=== PATIENT | female | born 1990 | race Hispanic/Latino ===

== ENCOUNTER 2021-08-08 13:53 | Emergency (ER) | payer BC, OTHER, SELFPAY ==
--- OUTSIDE RECORDS SUMMARY | 2021-08-08 13:56 | XMS REPORT | Continuity of Care Document ---
:[address] [facility] t Address [address] [place] [address] Care Team Providers Name Role Phone Unavailable Unavailable Unavailable Problems Condition Condition Condition Status Onset Resolution Last Treating Co mments Source Name Details Category Date Date Treatment Clinician Date Allergic Allergic Problem [facility], [facility] - unspecifie unspecifie Me moria d d l seasonalit seasonalit Ou tpati y, y, ent unspecifie unspecifie Cl inics d trigger d trigger Diarrhea Diarrhea Diagnosis Active [facility] - presumed presumed Memori a infectious infectious l [facility] Gastroente Gastroente Diagnosis Active [facility] - [facility] l [facility] Allergies, Adverse Reactions, Alerts This patient has no known allergies or adverse reactions. Medications Ordered Filled Start Stop Current Ordering Indication Dosage Frequency Signature Comments Components Source Medication Medication Date Date Medication? Clinician (SIG) Name Name Sulfamethox Sulfamethox 2019- No Jewell [address] [facility] azole-Trime azole-Trime 04-29 [facility] - thoprim thoprim 00:00: 00:00 Memori a 00 :00 l [facility] Procedures This patient has no known procedures. Encounters Start End Encounter Admission Attending Care Care Encounter Source Date/Time Date/Time Type Type Clinicians Facility Department ID 2019-04-29 2019-04-29 [facility] [id number] [facility] [address] 13:20:00 13:20:00 [facility] Results This patient has no known results.
[2021-08-08] MEDS ORDERED: LIDOCAINE 1% W/EPI 1:100,000 MDV 50 ML VIAL ONE (15:56)
--- NOTE | 2021-08-08 16:32 | EDPHYS ---
Physician Documentation [facility] Name: Dayna Garzon Age: 31 yrs Sex: Female : 1990 Arrival Date: 08/08/2021 Time: 13:54 Bed 9 Private MD: ED Physician Phillip Hernandez HPI: 08/08 15:45 This 31 yrs old Female presents to ER via Ambulatory with complaints of Wrist cp Injury, Laceration. 15:45 The patient or guardian complains of a laceration, clean. cp 15:45 The complaints affect the volar side distal left forearm. Context: The problem was cp sustained at work, accidental, patient reports she was using pocket knife. Onset: The symptoms/episode began/occurred just prior to arrival. Treatment prior to arrival includes: pressure dressing to area. Associated signs and symptoms: Pertinent negatives: decreased range of motion, numbness, tingling. 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 - Social history:: Smoking status: Patient denies any tobacco usage or history of. Patient uses alcohol, on a daily basis. Patient/guardian denies using street drugs. ROS: 15:50 Constitutional: Negative for body aches, chills, fever. cp 15:50 MS/extremity: Negative for decreased range of motion, deformity. 15:50 Skin: Positive for laceration(s), of the volar side distal left forearm. 15:50 Neuro: Negative for numbness, tingling, weakness. 15:50 All other systems are negative. Exam: 15:55 Constitutional: The patient appears in no acute distress, alert, awake, comfortable, cp well developed, well nourished. 15:55 Head/Face: Normocephalic, atraumatic. cp 15:55 Cardiovascular: Rate: normal, Pulses: Pulses are 2+ in left radial artery. cp 15:55 Respiratory: the patient does not display signs of respiratory distress, Respirations: normal, no use of accessory muscles, no retractions. 15:55 Musculoskeletal/extremity: Extremities: noted in the left hand: There is no evidence of decreased ROM, no signs of tendon injury, the left forearm and left hand Sensation intact. 15:55 Skin: injury, laceration(s), the wound is approximately 2.5 cm(s), of the volar side distal left forearm, that can be described as clean, no foreign body, linear, with mild bleeding. Vital Signs: 14:38 BP 128 / 82; Pulse 82; Resp 18; Temp 97.9(TE); Pulse Ox 99% on R/A; Weight 72.57 kg; ld1 Height 5 ft. 1 in. (154.94 cm); Pain 0/10; 14:38 Body Mass Index 30.23 (72.57 kg, 154.94 cm) ld1 Laceration: 16:27 Wound Repair of 2.5cm ( 1.0in ) subcutaneous laceration to volar side distal left cp forearm. Linear shaped.. Distal neuro/vascular/tendon intact. Anesthesia: Wound infiltrated with 3 mls of 1% lidocaine w/ Epi. Wound prep: Moderate cleansing by me, Wound irrigation. Skin closed with 3 4-0 Prolene using simple sutures and sterile technique. Dressed with Bacitracin, 4x4's. Patient tolerated well. MDM: 15:34 Patient medically screened. [facility] 16:30 Data reviewed: vital signs, nurses notes. cp 16:30 Differential diagnosis: open fracture, simple laceration, tendon injury. Counseling: I cp had a detailed discussion with the patient and/or guardian regarding: the historical points, exam findings, and any diagnostic results supporting the discharge/admit diagnosis, to return to the emergency department if symptoms worsen or persist or if there are any questions or concerns that arise at home. Response to treatment: the patient's symptoms have markedly improved after treatment, and as a result, I will discharge patient. 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 Exp: ss 01/10/2023. Lot #: [id number]. } Route: IM; Site: right gluteus; Disposition: 16:45 Chart complete. cp 08/09 09:19 Co-signature as Attending Physician, Phillip Hernandez MD I agree with the assessment and [facility] plan of care. Disposition Summary: 08/08/21 16:31 Discharge Ordered Location: Home cp Problem: new cp Symptoms: have improved cp Condition: Stable cp Diagnosis - Laceration without foreign body of left forearm cp Followup: cp - With: Private Physician - When: 10 - 14 days - Reason: Staple/Suture removal Discharge Instructions: - Discharge Summary Sheet cp - Laceration Care, Adult cp Forms: - Medication Reconciliation Form cp - Thank You Letter cp - Antibiotic Education cp - Prescription Opioid Use cp Signatures: Phillip Hernandez MD MD cha Smirch, Shelby, RN RN Phillip Patel PA PA cp Eda Red, RN RN ld1
--- NOTE | 2021-08-08 16:32 | ER ---
Nurse's Notes [facility] Name: Dayna Garzon Age: 31 yrs Sex: Female : 1990 Arrival Date: 08/08/2021 Time: 13:54 Bed 9 Private MD: Diagnosis: Laceration without foreign body of left forearm Presentation: 08/08 14:38 Chief complaint: Patient states: I was at work and I cut my left wrist on a pocket ld1 knife - pt denies SI - not up to date on tetanus. Coronavirus screen: At this time, the client does not indicate any symptoms associated with coronavirus-19. Ebola Screen: No symptoms or risks identified at this time. Initial Sepsis Screen: Does the patient meet any 2 criteria? No. Patient's initial sepsis screen is negative. Does the patient have a suspected source of infection? No. Patient's initial sepsis screen is negative. Risk Assessment: Do you want to hurt yourself or someone else? Patient reports no desire to harm self or others. Onset of symptoms was August 08, 2021. 14:38 Method Of Arrival: Ambulatory ld1 14:38 Acuity: LAMONTE 4 ld1 Triage Assessment: 14:38 General: Appears in no apparent distress. comfortable, Behavior is calm, cooperative, ld1 appropriate for age. Pain: Denies pain. EENT: No signs and/or symptoms were reported regarding the EENT system. Neuro: Level of Consciousness is awake, alert, obeys commands, Oriented to person, place, time, situation, Appropriate for age. Cardiovascular: Capillary refill < 3 seconds Patient's skin is warm and dry. Respiratory: Airway is patent Respiratory effort is even, unlabored, Respiratory pattern is regular, symmetrical. : No signs and/or symptoms were reported regarding the genitourinary system. Derm: No signs and/or symptoms reported regarding the dermatologic system. Musculoskeletal: No signs and/or symptoms reported regarding the musculoskeletal system. Injury Description: Laceration sustained to palmar aspect of left forearm. 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 - Social history:: Smoking status: Patient denies any tobacco usage or history of. Patient uses alcohol, on a daily basis. Patient/guardian denies using street drugs. Screenin:13 Abuse screen: Denies threats or abuse. Denies injuries from another. Nutritional ss screening: No deficits noted. Tuberculosis screening: Never had TB. Fall Risk None identified. Assessment: 17:13 Reassessment: Patient appears in no apparent distress at this time. Patient and/or ss family updated on plan of care and expected duration. Pain level reassessed. Patient is alert, oriented x 3, equal unlabored respirations, skin warm/dry/pink. Vital Signs: 14:38 BP 128 / 82; Pulse 82; Resp 18; Temp 97.9(TE); Pulse Ox 99% on R/A; Weight 72.57 kg; ld1 Height 5 ft. 1 in. (154.94 cm); Pain 0/10; 14:38 Body Mass Index 30.23 (72.57 kg, 154.94 cm) ld1 ED Course: 13:54 Patient arrived in ED. am2 14:38 Arm band placed on right wrist. ld1 14:42 Triage completed. ld1 15:26 Phillip Farnsworth PA is PHCP. cp 15:26 Phillip Hernandez MD is Attending Physician. cp 15:56 Ani Up, GABRIELLA is Primary Nurse. ss 17:12 Assist provider with laceration repair on back of left arm and palmar aspect of left ss forearm. Patient did not have IV access during this emergency room visit. 17:13 Patient has correct armband on for positive identification. Bed in low position. Call ss light in reach. 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 Exp: ss 01/10/2023. Lot #: [id number]. } Route: IM; Site: right gluteus; Outcome: 16:31 Discharge ordered by . cp 17:12 Discharged to home ambulatory. ss 17:12 Condition: good 17:12 Discharge instructions given to patient, Instructed on discharge instructions, follow up and referral plans. Demonstrated understanding of instructions, follow-up care. 17:14 Patient left the ED. Signatures: Ani Up RN RN Phillip Farnsworth PA PA cp Moreno, Amanda am2 Eda Red RN RN ld1 Corrections: (The following items were deleted from the chart) 14:43 14:38 Pulse 82bpm; Resp 18bpm; Pulse Ox 99% RA; Temp 97.9F Temporal; 72.57 kg; Height 5 ld1 ft. 1 in.; BMI: 30.2; Pain 0/10; ld1
[2021-08-08] MEDS ORDERED: TETANUS & DIPHTHERIA TOX,ADULT 0.5 ML VIAL ONE (16:59)
[2021-08-08 17:21] VITALS: BP 128/82; TEMP 97.9; O2SAT 99
== END 2021-08-08 17:14 | disposition home or self-care (01) ==
LOC: ER 13:53
PROC: 0JQH0ZZ Repair Left Lower Arm Subcutaneous Tissue and Fascia, Open Approach (ICD-10-PCS; principal; 2021-08-08)
DX: S51.812A Laceration without foreign body of left forearm, initial encounter (principal); W26.0XXA Contact with knife, initial encounter; Y92.009 Unspecified place in unspecified non-institutional (private) residence as the place of occurrence of the external cause; Z23 Encounter for immunization
CPT/HCPCS: 90471; 90714; 99283